=== PATIENT | male | born 1975 | race African-American/Black ===

== ENCOUNTER 2019-08-20 14:38 | Emergency (ER) | payer MEDICAID ==
[~2019-08-20] VITALS: Ht 188 cm; Wt 85.8 kg
[2019-08-20 14:40] VITALS: BP 175/83
--- NOTE | 2019-08-20 14:56 | NUR ---
PT C/O COUGH X4 DAYS AND NOTICED SPUTUM IS GREEN TODAY. CONNECTED TO MONITORING. CALL LIGHT IN REACH. AWAITING ORDERS AT THIS TIME.
[2019-08-20] MEDS ORDERED: SPIR100T4 PO (15:26)
[2019-08-20] MEDS ORDERED: ESTR0.5T PO (15:26)
[2019-08-20] MEDS ORDERED: RIFA550T4 PO (15:26)
[2019-08-20] MEDS ORDERED: METO-93 PO (15:26)
[2019-08-20] MEDS ORDERED: MEDR2.5T30 PO (15:26)
[2019-08-20] MEDS ORDERED: CELE100C PO (15:26)
[2019-08-20] MEDS ORDERED: TIZA4CAP PO (15:26)
[2019-08-20] MEDS ORDERED: PANT40TA5 PO (15:26)
[2019-08-20] MEDS ORDERED: TOPI50TA8 PO (15:26)
[2019-08-20] MEDS ORDERED: ROPI1TAB4 PO (15:26)
[2019-08-20] MEDS ORDERED: ONDA-89 PO (15:26)
[2019-08-20] MEDS ORDERED: SODI650T PO (15:26)
[2019-08-20] MEDS ORDERED: ESCI20TA PO (15:26)
--- NOTE | 2019-08-20 15:43 | NUR ---
ALL RESULTS ARE BACK AT THIS TIME. CHART UP FOR RECHECK.
--- NOTE | 2019-08-20 15:45 | NUR ---
MD AT BEDSIDE TO UPDATE PT ON POC.
== END 2019-08-20 16:01 | disposition home or self-care (01) ==
LOC: ED 15:14
DX: J98.01 Acute bronchospasm (principal); E11.65 Type 2 diabetes mellitus with hyperglycemia; Z76.0 Encounter for issue of repeat prescription
CPT/HCPCS: 71046; 82962; 99283

== ENCOUNTER 2021-01-30 16:07 | Emergency (ER) | payer MEDICAID ==
[~2021-01-30] VITALS: Ht 188 cm; Wt 98.0 kg
[~2021-01-30 16:07] MED LIST: CELE100C PO; ESCI20TA8 PO; ESTR0.5T PO; MEDR2.5T30 PO; METO-93 PO; ONDA-89 PO; PANT40TA6 PO; RIFA550T4 PO; ROPI1TAB4 PO; SODI650T PO; SPIR100T4 PO; TIZA4CAP PO; TOPI50TA8 PO
[2021-01-30 16:51] VITALS: BP 135/80
--- NOTE | 2021-01-30 18:07 | NUR ---
NOTIFIED BY REG STAFF THAT PT SIGNED OUT FROM TRIAGE.
== END 2021-01-30 18:09 | disposition left against medical advice (07) ==
LOC: ED 16:30
DX: K62.5 Hemorrhage of anus and rectum (principal); Z53.21 Procedure and treatment not carried out due to patient leaving prior to being seen by health care provider